=== PATIENT | female | born 1945 | race Caucasian/White ===

== ENCOUNTER 2018-01-27 05:57 | Day surgery (SDC) | payer OTHER ==
[2018-01-27] MEDS ORDERED: NEURONTIN300 MG PO (09:32)
[2018-01-27] MEDS ORDERED: MIRALAX17 GM PO (09:32)
[2018-01-27] MEDS ORDERED: PERCOCET 5-3251 EACH PO (09:32)
[2018-01-27] MEDS ORDERED: ZOFRAN ODT4 MG PO (09:32)
== END 2018-01-27 11:25 | disposition home or self-care (01) ==
LOC: CIR.AMB 05:57 → EDSTATUS 13:55 → SURG 13:55 → CIR.AMB 13:55
DX: K43.2 Incisional hernia without obstruction or gangrene (principal); K40.90 Unilateral inguinal hernia, without obstruction or gangrene, not specified as recurrent; D27.0 Benign neoplasm of right ovary; N70.01 Acute salpingitis; N83.8 Other noninflammatory disorders of ovary, fallopian tube and broad ligament